=== PATIENT | female | born 1980 | race Caucasian/White ===

== ENCOUNTER 2021-03-08 17:57 | Emergency (ER) | payer OTHER, MEDICAID ==
[~2021-03-08] VITALS: Ht 180.3 cm; Wt 108.9 kg
[~2021-03-08 17:57] MED LIST: ALPR1TAB2 PO
[2021-03-08 18:44] VITALS: BP_SYST 150
[2021-03-08 21:55] LABS: CALCIUM 9.2 mg/dL (8.4-11.0); CREATININE 0.9 mg/dL (0.55-1.30)
[2021-03-08 22:08] LABS: BASOPHILS # (AUTO) 0.1 K/uL (0.0-0.2); BASOPHILS % (AUTO) 1.2 % (0.0-2.0); EOSINOPHILS # (AUTO) 0.3 K/uL (0.0-0.4); EOSINOPHILS % (AUTO) 3.3 % (0.0-4.0); HEMATOCRIT 37.9 % (36-48); LYMPHOCYTES # (AUTO) 2.1 K/uL (1.0-5.5); LYMPHOCYTES % (AUTO) 26.6 % (20.5-51.5); MEAN CORPUSCULAR HEMOGLOBIN 31 pg (27-31); MEAN CORPUSCULAR HGB CONC 35 % (32-36); MEAN CORPUSCULAR VOLUME 89 fL (79.0-98.0); MONOCYTES # (AUTO) 0.4 K/uL (0.0-1.0); MONOCYTES % (AUTO) 5.4 % (1.7-9.3); NEUTROPHILS % (AUTO) 63.5 % (40.0-70.0); PLATELET COUNT (AUTO) 329 K/uL (130-430); RED BLOOD CELL COUNT(AUTO) 4.26 MIL/uL (4.2-6.2); RED CELL DISTRIBUTION WIDTH 13.4 % (9.0-15.0); WHITE BLOOD COUNT (AUTO) 7.8 K/uL (4.8-10.8)
[2021-03-08 22:28] LABS: POTASSIUM 2.7 mmol/L (3.5-5.1)
[2021-03-08] MEDS ORDERED: POTASSIUM CHLORIDE 20 MEQ/PKT PACKET PO ONE (22:30)
[2021-03-08 22:32] LABS: TOTAL BILIRUBIN 0.6 mg/dL (0.0-1.0)
[2021-03-08 22:42] LABS: INR 1.1 (0.8-1.2); PROTHROMBIN TIME 11.3 SECS (9.5-12.5)
[2021-03-09 00:43] VITALS: BP_SYST 150
== END 2021-03-09 00:43 | disposition home or self-care (01) ==
LOC: SED 17:57
DX: R60.0 Localized edema (principal); K21.9 Gastro-esophageal reflux disease without esophagitis; Z79.899 Other long term (current) drug therapy
CPT/HCPCS: 36415; 71045; 80053; 83880; 84484; 85025; 85379; 85610-TC; 85730-TC; 93005; 93970; 99285

== ENCOUNTER 2021-05-18 15:25 | Emergency (ER) | payer OTHER, MEDICAID ==
[~2021-05-18] VITALS: Ht 180.3 cm; Wt 111.1 kg
--- NOTE | 2021-05-18 15:40 | NUR ---
Pt triaged and placed in waiting room.
[2021-05-18 15:45] VITALS: BP_SYST 154
--- NOTE | 2021-05-18 16:01 | NUR ---
Patient to ER bed 2 to gown for evaluation. Side rails up. Report given to IDALIA Howard.
--- NOTE | 2021-05-18 16:07 | NUR ---
DR SILVA IN ROOM FOR EXAM.
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
[2021-05-18] MEDS ORDERED: cefTRIAXone 1 GM VIAL IM ONE (16:15)
--- NOTE | 2021-05-18 16:38 | NUR ---
MEDICTED ORDERED, MONITORING FOR ANY ADVSER SIDE EFFECTS
[2021-05-18] MEDS ORDERED: AMOX-426 PO (16:48)
[2021-05-18 16:53] VITALS: BP_SYST 133
--- NOTE | 2021-05-18 16:55 | NUR ---
Patient given written and verbal discharge instructions and verbalizes understanding. ER MD discussed with patient the results and treatment provided. Patient in stable condition. ID arm band removed. Patient educated on pain management and to follow up with PMD. Pain Scale . Opportunity for questions provided and answered. Medication side effect fact sheet provided.
== END 2021-05-18 16:53 | disposition home or self-care (01) ==
LOC: SED 15:25
DX: L03.115 Cellulitis of right lower limb (principal); Z79.899 Other long term (current) drug therapy; K21.9 Gastro-esophageal reflux disease without esophagitis
CPT/HCPCS: 96372; 99283; J0696

== ENCOUNTER 2021-05-21 11:29 | Emergency (ER) | payer OTHER, MEDICAID ==
[~2021-05-21] VITALS: Ht 180.3 cm; Wt 99.8 kg
[~2021-05-21 11:29] MED LIST changes: +AMOX-426 PO
[2021-05-21 11:39] VITALS: BP_SYST 168
[2021-05-21] MEDS ORDERED: LURA20TA PO ×3 (12:11→12:50)
[2021-05-21] MEDS ORDERED: TRAZ-251 PO ×3 (12:11→12:50)
[2021-05-21] MEDS ORDERED: VIS50 PO ×3 (12:27→12:50)
[2021-05-21 13:15] VITALS: BP_SYST 160
== END 2021-05-21 13:10 | disposition home or self-care (01) ==
LOC: SED 11:29
DX: F41.9 Anxiety disorder, unspecified (principal); F31.9 Bipolar disorder, unspecified; K21.9 Gastro-esophageal reflux disease without esophagitis; Z79.899 Other long term (current) drug therapy; Z76.0 Encounter for issue of repeat prescription
CPT/HCPCS: 99283; J3410

== ENCOUNTER 2021-05-31 18:18 | Inpatient (IN) | payer OTHER, MEDICAID, SELFPAY ==
[~2021-05-31] VITALS: Ht 180.3 cm; Wt 97.5 kg
[~2021-05-31 18:18] MED LIST changes: +LURA20TA PO; +TRAZ-251 PO; +VIS50 PO
--- NOTE | 2021-05-31 18:41 | NUR ---
TRIAGED IN HALLWAY
[2021-05-31 19:47] LABS: BASOPHILS # (AUTO) 0.1 K/uL (0.0-0.2); BASOPHILS % (AUTO) 0.3 % (0.0-2.0); EOSINOPHILS # (AUTO) 0.1 K/uL (0.0-0.4); EOSINOPHILS % (AUTO) 0.3 % (0.0-4.0); HEMATOCRIT 39.6 % (36-48); HEMOGLOBIN 13.2 g/dL (12.0-16.0); LYMPHOCYTES # (AUTO) 1.5 K/uL (1.0-5.5); LYMPHOCYTES % (AUTO) 9.2 % (20.5-51.5); MEAN CORPUSCULAR HEMOGLOBIN 29 pg (27-31); MEAN CORPUSCULAR HGB CONC 33 % (32-36); MEAN CORPUSCULAR VOLUME 88 fL (79.0-98.0); MONOCYTES # (AUTO) 0.5 K/uL (0.0-1.0); MONOCYTES % (AUTO) 2.8 % (1.7-9.3); NEUTROPHILS # (AUTO) 14.4 K/uL (1.8-7.7); NEUTROPHILS % (AUTO) 87.4 % (40.0-70.0); PLATELET COUNT (AUTO) 372 K/uL (130-430); WHITE BLOOD COUNT (AUTO) 16.5 K/uL (4.8-10.8)
[2021-05-31 19:56] LABS: ANION GAP 13 (5-15); CALCIUM 9.1 mg/dL (8.4-11.0); CHLORIDE 102 mmol/L (98-107); CREATININE 0.85 mg/dL (0.55-1.30); GLUCOSE 155 mg/dL (70-99); POTASSIUM 3.2 mmol/L (3.5-5.1); SODIUM SERUM 137 mmol/L (136-145); UREA NITROGEN, BLOOD 9 mg/dL (8-21)
[2021-05-31 19:57] LABS: GFR AFRICAN AMERICAN 94 mL/min (>90)
[2021-05-31 20:01] LABS: C-REACTIVE PROTEIN QUANT < 0.2 mg/dL (0-0.5)
[2021-05-31 20:02] LABS: ALANINE AMINOTRANSFERASE 36 U/L (12-78); ALBUMIN 3.8 g/dL (3.4-4.8); AMYLASE 77 U/L (0-100); ASPARTATE AMINOTRANSFERASE 34 U/L (10-37); LACTATE DEHYDROGENASE 160 U/L (81-234); LIPASE 147 U/L (73-393); TOTAL BILIRUBIN 0.5 mg/dL (0.0-1.0)
--- NOTE | 2021-05-31 20:10 | NUR ---
PT BIB MOTHER FOR NAUSEA, VOMITING AND DIARHEA SINCE 1730 TODAY. PT ATE IN N OUT AT AROUND 1700 AND STARTED HAVING SEVERE DIARHEA AND VOMITING. PT STATES OVER 5 VOMITING EPISODES AND DIARHEA FOR 6 EPISODES. A&OX4, -CP, -SOB.
[2021-05-31] MEDS ORDERED: ONDANSETRON 4 MG ODT TAB PO ONE (20:30)
--- NOTE | 2021-05-31 20:30 | NUR ---
# 20 gauge angiocath placed to LAC. Use of asceptic technique. Opsite placed over site. Blood return noted. Blood for lab drawn from site. Flushed with 10 cc of normal saline. No evidence of infiltration noted. Patient tolerated well.
[2021-05-31] MEDS ORDERED: ONDANSETRON HCL 4 MG/2 ML VIAL ONE (20:56)
[2021-05-31] MEDS ORDERED: LORazepam 2 MG/ML VIAL ONE (20:56)
[2021-05-31] MEDS ORDERED: LORazepam 2 MG/ML VIAL IVP ONE (21:00)
[2021-05-31] MEDS ORDERED: ONDANSETRON HCL 4 MG/2 ML VIAL IVP ONE ×2 (21:00→23:45)
[2021-05-31] MEDS ORDERED: NACL 0.9% 1,000 ML IV ONE (21:00)
[2021-05-31] MEDS ORDERED: ATROPINE SULFATE 1 MG/10 ML SYRINGE IVP ONE ×2 (23:30→23:37)
[2021-05-31] MEDS ORDERED: CEFEPIME 2 GM in D5W 100 ML IV ONE (23:45)
[2021-05-31] MEDS ORDERED: metroNIDAZOLE 500 mg/NS 100 ML IV ONE (23:45)
[2021-05-31] MEDS ORDERED: VANCOMYCIN HCL Non-Formulary 125 MG CAPSULE PO SCH (23:45)
[2021-05-31] MEDS ORDERED: CEFEPIME 1 GM/VIAL (MAXIPIME) ONE (23:49)
--- NOTE | 2021-06-01 00:08 | NUR ---
pt being transferred by [facility] ambulance to [place] for a ct scan with contrast
--- NOTE | 2021-06-01 01:20 | NUR ---
PT BACK TO ROOM, CT NOT DONE. WILL BE ORDERED BY DR KUO HERE IN OUR ER. PTs VSS
[2021-06-01] MEDS ORDERED: DIPHENHYDRAMINE INJ 50 MG/ML VIAL IVP ONE (02:45)
[2021-06-01] MEDS ORDERED: METOCLOPRAMIDE HCL 10 MG/2 ML VIAL IVP ONE (02:45)
--- NOTE | 2021-06-01 02:49 | NUR ---
Patient transported to radiology via GURNEY, accompanied by OKRY WILSON
[2021-06-01 04:41] LABS: BILIRUBIN,URINE NEGATIVE (NEGATIVE); BLOOD, URINE NEGATIVE (NEGATIVE); CLARITY/URINE SL CLOUDY (CLEAR); COLOR,URINE YELLOW (YELLOW); GLUCOSE,URINE NEGATIVE (NEGATIVE); KETONES,URINE NEGATIVE (NEGATIVE); LEUKOCYTE ESTERASE ,URINE NEGATIVE (NEGATIVE); NITRITE, URINE NEGATIVE (NEGATIVE); PROTEIN URINE NEGATIVE (NEGATIVE); UROBILINOGEN,URINE 0.2 (0.2-1.0)
[2021-06-01] MEDS ORDERED: PROMETHAZINE INJ.Non-Formulary 25 MG/ML AMP IM ONE (04:45)
[2021-06-01 04:55] LABS: BACTERIA,URINE MANY /HPF (None Seen); RBC,URINE 0-3 /HPF (0-3)
[2021-06-01 04:56] LABS: MUCUS,URINE None Seen /LPF (None Seen); URINE AMORPHOUS PHOSPHATES 2+ /HPF (None Seen)
[2021-06-01 04:57] LABS: BARBITURATE, URINE NEGATIVE (NEG <=200); URINE AMPHETAMINE NEGATIVE (NEG <=500)
[2021-06-01 04:58] LABS: BENZODIAZEPINE, URINE POSITIVE (NEG <=150); CANNABINOID, URINE POSITIVE (NEG <=50); COCAINE, URINE NEGATIVE (NEG <=150); METHAMPHETAMINES SCREEN,URINE NEGATIVE (NEG <=500); OPIATE, URINE NEGATIVE (NEG <=100); PHENCYCLIDINE SCREEN,URINE NEGATIVE (NEG <=25); UR TRICYCLIC ANTIDEPRESSANTS NEGATIVE (NEG <=300); URINE METHADONE NEGATIVE (NEG <=200); URINE OXYCODONE SCREEN NEGATIVE (NEG <=100); URINE PROPOXYPHENE SCREEN NEGATIVE (NEG <=300)
[2021-06-01] MEDS ORDERED: ONDANSETRON HCL 4 MG/2 ML VIAL IVP ONE (05:15)
[2021-06-01] MEDS ORDERED: VANCOMYCIN HCL ORAL SOLUTION 250 MG/5 ML, 80 ML PO SCH (05:15)
[2021-06-01] MEDS: KCL 20 mEq in D5/0.45NS 1000mL 1,000 ML IV SCH ×2 (05:22→11:12)
--- NOTE | 2021-06-01 07:31 | NUR ---
REPORT RECEIVED, PT WITH EYES CLOSED, EASILY AROUSBALE TO VOICE. PT DENIES ANY DIZZINES/SOB OR CP. SKIN W/D/I, DENIES ANY PAIN, BUT REPORTS MILD NAUSEA. REPORTTS LAST TIME SHE VOMITTED WAS LAST NIGHT. RESP EVEN AND UNLABORED, ON RA @95%. REPOSITIOND IN BED, IV FLUIDS INFUSING VIA PUMP ORDERED. SAFTEY PRECAUTIONS IN PLACE, WILL CONT TO MONITOR.
--- NOTE | 2021-06-01 09:57 | NUR ---
REPORT GIVEN TO UTE FRIEDMAN, UPDATED ON STATUS, LABS AND VITALS. PT STABLE FR TRANSFER. VSS. PT GOT UP TO BATHROOM WITH STEADY GAIT. DENIES ANY DIARRHEA.VOMITIING.
--- NOTE | 2021-06-01 10:25 | NUR ---
Patient will be admitted to care of D MARCEL. Admitted to unit. Will go to room . Belongings list completed. Complete and up to date summary report printed. SBAR report to be given at bedside with opportunity for questions.
--- NOTE | 2021-06-01 10:32 | NUR ---
CONSULTATION PAGED/CALLED Reason for Consultation: [] ACUTE COLITIS Person Who was Notified: [] TIESHA Consulting Physician: [] DR DAMON Group Segment Consultant Specialty: [] ID Ordering Physician: [] DR RODNEY
[2021-06-01 10:40] VITALS: BP_SYST 151
[2021-06-01 10:59] VITALS: BP_SYST 151
[2021-06-01] MEDS ORDERED: NON-FORMULARY MEDICATION (Lurasidone Hcl (Latuda) 1 TAB) PO SCH (14:15)
[2021-06-01] MEDS: cefTRIAXone 1 GM in D5W 50 ML IV SCH (15:56)
[2021-06-01] MEDS: metroNIDAZOLE 250 mg/NS 50 ML IV SCH ×2 (15:56→20:57)
--- NOTE | 2021-06-01 16:42 | NUR ---
APPEARED ALERT, ORIENTED, AND APPROPRIATE. ASKING FOR FOOD, OFFERED LIQUID DIET TO BEGIN WITH, DID NOT EAT, JUST DRANK SOME JUICE. IVF STARTS RIGHT AWAY ON ARRIVAL, CLAIMED SHE HAS HAD DIARRHEA X 3 DAYS, NEEDS STOOL SPECIMEN, SO FAR SHE DOES NOT HAVE A BM YET, PER ID, ALL ABX ( ROCEPHIN, AND FLAGYL IVPB INITIATED). PATIENT DID REQUEST TRAZODONE FOR TONITE, WHICH HAS BEEN ORDERED, PATIENT MADE AWARE. ON BED REST
--- NOTE | 2021-06-01 17:40 | NUR ---
AMARI NOTIFIED [facility], WHICH IS NOT FORMULARY IN THIS HOSPITAL. CALLED PATIENT'S MOTHER TO BRING IT TO THE HOSPITAL. PATIENT REALLY NEEDS IT
[2021-06-01 18:02] VITALS: BP_SYST 148
[2021-06-01 20:10] VITALS: BP_SYST 158
--- NOTE | 2021-06-01 20:10 | NUR ---
Opening notes Pt AAOx 4, VSS, afebrile. No s/s distress noted. Pt has N/V, yellow emesis noted. Pt on clear liquid diet. Will medicate with Zofran as needed. Pt denies diarrhea. IVF infusing at ordered rate L. AC 20G clear and patent. Call light within reach. To monitor.
[2021-06-01] MEDS: ONDANSETRON HCL 4 MG/2 ML VIAL IVP PRN (20:42)
[2021-06-01] MEDS: ENOXAPARIN SODIUM 40 MG/0.4 ML SYRINGE SUBCUT SCH (20:45)
[2021-06-01] MEDS: traZODone HCL 50 MG TABLET (DESYREL) PO PRN (20:55)
--- NOTE | 2021-06-01 22:05 | NUR ---
Pt speaking with mother on phone. No distress noted.
[2021-06-01] MEDS: VANCOMYCIN HCL ORAL SOLUTION 250 MG/5 ML, 80 ML PO SCH (23:15)
[2021-06-02 00:09] VITALS: BP_SYST 148
[2021-06-02] MEDS: ONDANSETRON HCL 4 MG/2 ML VIAL IVP PRN ×4 (01:43→17:58)
--- NOTE | 2021-06-02 01:43 | NUR ---
Zofran Pt awake, c/o N/V, medicated with Zofran 4mg IVP as needed per pt request. Educated pt to keep L. arm straight for IV fluid infusion, pt demonstrated understanding. To monitor
[2021-06-02] MEDS: KCL 20 mEq in D5/0.45NS 1000mL 1,000 ML IV SCH ×4 (03:00→23:48)
[2021-06-02] MEDS ORDERED: KCL 20 mEq in D5/0.45NS 1000mL 1,000 ML IV ONE (05:52)
[2021-06-02] MEDS: metroNIDAZOLE 250 mg/NS 50 ML IV SCH ×3 (06:07→21:12)
[2021-06-02] MEDS: VANCOMYCIN HCL ORAL SOLUTION 250 MG/5 ML, 80 ML PO SCH ×5 (06:09→23:15)
[2021-06-02 06:34] LABS: BASOPHILS # (AUTO) 0.1 K/uL (0.0-0.2); BASOPHILS % (AUTO) 0.3 % (0.0-2.0); EOSINOPHILS % (AUTO) 0.1 % (0.0-4.0); HEMATOCRIT 36.9 % (36-48); HEMOGLOBIN 12.5 g/dL (12.0-16.0); LYMPHOCYTES # (AUTO) 1.6 K/uL (1.0-5.5); LYMPHOCYTES % (AUTO) 10.3 % (20.5-51.5); MEAN CORPUSCULAR HEMOGLOBIN 30 pg (27-31); MEAN CORPUSCULAR HGB CONC 34 % (32-36); MEAN CORPUSCULAR VOLUME 87 fL (79.0-98.0); MONOCYTES # (AUTO) 0.6 K/uL (0.0-1.0); MONOCYTES % (AUTO) 3.9 % (1.7-9.3); NEUTROPHILS # (AUTO) 13.7 K/uL (1.8-7.7); NEUTROPHILS % (AUTO) 85.4 % (40.0-70.0); PLATELET COUNT (AUTO) 324 K/uL (130-430); RED BLOOD CELL COUNT(AUTO) 4.23 MIL/uL (4.2-6.2); RED CELL DISTRIBUTION WIDTH 14.1 % (9.0-15.0)
--- NOTE | 2021-06-02 06:40 | NUR ---
Closing notes Pt AAOx3, no s/s distress noted. Pt medicated with nausea med Zofran 4mg IVP. IVF/antibiotic infusing at ordered rate L. AC no s/s infiltration. Call light within reach. Bed low, locked, siderails up x2. Safety maintained. To endorse to AM nurse.
[2021-06-02 06:56] LABS: CALCIUM 8.4 mg/dL (8.4-11.0); CREATININE 0.55 mg/dL (0.55-1.30); POTASSIUM 3.1 mmol/L (3.5-5.1)
[2021-06-02 08:17] VITALS: BP_SYST 168
--- NOTE | 2021-06-02 08:17 | NUR ---
INITIAL ROUNDS Received pt AAOx4, no s/s resp distress, no c/o pain or discomfort. IVF infusing well to LAC at ordered rate with no s/s infiltration to site. Plan of care for the day reviewed with pt-she verbalized her understanding. Pain management, disease process, skin and safety discussed-teach back done. Call light within reach.
[2021-06-02] MEDS: amLODIPine BESYLATE 10 MG TABLET PO SCH (10:00)
[2021-06-02] MEDS: LURASIDONE (LATUDA) 20 MG TABLET PO SCH (10:00)
--- NOTE | 2021-06-02 11:10 | NUR ---
ANXIOUS Pt c/o feeling very anxious-pt given Vistaril as ordered. Light turned down low and curtain pulled to promote rest. Call light within reach.
[2021-06-02 11:23] VITALS: BP_SYST 173
[2021-06-02] MEDS: cefTRIAXone 1 GM in D5W 50 ML IV SCH (12:02)
[2021-06-02 15:45] VITALS: BP_SYST 134
--- NOTE | 2021-06-02 18:21 | NUR ---
CLOSING NOTE Pt resting quietly in bed with no s/s resp distress, no c/o pain, no further c/o nausea-pt given Zofran at 1758. Pt still refused the Vanco liquid, pt stated " I don't want to start throwing up again and I finely feel a little better". IVF infusing well to LAC at ordered rate with no s/s infiltration to site. Pt encouraged to try to eat her dinner-pt stated "I'm going to try the broth". Call light within reach.
[2021-06-02 20:30] VITALS: BP_SYST 109
--- NOTE | 2021-06-02 21:00 | NUR ---
Opening notes Pt alert, awake, calm, no s/s distress noted. Pt denies N/V at this time. IVF infusing at ordered rate L. AC 20 clear and patent. Pt maintained on clear liquid diet. Awaiting stool sample. Call light within reach. To monitor.
[2021-06-02] MEDS: ENOXAPARIN SODIUM 40 MG/0.4 ML SYRINGE SUBCUT SCH (21:13)
[2021-06-02] MEDS ORDERED: D5 IV ONE (23:17)
[2021-06-02] MEDS ORDERED: [UNRECOGNIZED DRUG - OTHER] IV ONE (23:17)
[2021-06-02] MEDS ORDERED: KCL IV ONE (23:17)
--- NOTE | 2021-06-02 23:50 | NUR ---
Stool sample collected and sent to lab.
[2021-06-03 01:40] VITALS: BP_SYST 105
[2021-06-03] MEDS: KCL 20 mEq in D5/0.45NS 1000mL 1,000 ML IV SCH (05:00)
[2021-06-03] MEDS: VANCOMYCIN HCL ORAL SOLUTION 250 MG/5 ML, 80 ML PO SCH ×4 (05:15→23:15)
[2021-06-03] MEDS: ACETAMINOPHEN 325 MG TABLET PO PRN ×2 (05:25→15:17)
[2021-06-03] MEDS: metroNIDAZOLE 250 mg/NS 50 ML IV SCH ×3 (05:25→20:50)
--- NOTE | 2021-06-03 05:25 | NUR ---
Closing notes/Headache Pt awake, c/o headache. Medicated with Tylenol 2 tabs PO as needed. Pt denies any nausea/vomitting. IVF/abx infusing L. AC 20G clear and patent. Call light within reach. To endorse to AM nurse.
--- NOTE | 2021-06-03 07:55 | NUR ---
Opening Notes Patient is awake, alert and oriented x4. No resp distress noted. Breathing is even and unlabored. Pt denies any pain at this time. IV site on left AC 20 gauge intact at this time. KCl 20 mEq + D5 1/2 NS @ 125 cc/hr, infusing well. Pt is ambulatory steady gait. Pt denies any N/V at this time. Pt reports continued diarrhea but less frequent episodes. Pt reports that Vanco oral solution makes her nauseated. Pt also report intermittent bloody drainage from her belly button, will follow up with MD Cook. All needs met at this time. Safety and fall precautions in place. Bed in lowest position, locked. Will continue to monitor.
[2021-06-03 08:00] VITALS: BP_SYST 114
[2021-06-03] MEDS: amLODIPine BESYLATE 10 MG TABLET PO SCH (08:57)
[2021-06-03] MEDS: LURASIDONE (LATUDA) 20 MG TABLET PO SCH (08:58)
--- NOTE | 2021-06-03 10:00 | NUR ---
Notes Patient is relaxing in bed and talking on her phone. No resp distress noted. Breathing is even and unlabored. Denies any pain. Will continue to monitor.
[2021-06-03 11:04] LABS: BASOPHILS # (AUTO) 0.1 K/uL (0.0-0.2); BASOPHILS % (AUTO) 1.2 % (0.0-2.0); EOSINOPHILS # (AUTO) 0.1 K/uL (0.0-0.4); EOSINOPHILS % (AUTO) 1.5 % (0.0-4.0); HEMATOCRIT 42.2 % (36-48); HEMOGLOBIN 14.2 g/dL (12.0-16.0); LYMPHOCYTES # (AUTO) 1.9 K/uL (1.0-5.5); LYMPHOCYTES % (AUTO) 25.6 % (20.5-51.5); MEAN CORPUSCULAR HEMOGLOBIN 30 pg (27-31); MEAN CORPUSCULAR HGB CONC 34 % (32-36); MEAN CORPUSCULAR VOLUME 88 fL (79.0-98.0); MONOCYTES # (AUTO) 0.5 K/uL (0.0-1.0); MONOCYTES % (AUTO) 7.1 % (1.7-9.3); NEUTROPHILS # (AUTO) 4.9 K/uL (1.8-7.7); NEUTROPHILS % (AUTO) 64.6 % (40.0-70.0); PLATELET COUNT (AUTO) 295 K/uL (130-430)
[2021-06-03 11:16] LABS: CALCIUM 8.8 mg/dL (8.4-11.0); CREATININE 0.89 mg/dL (0.55-1.30); POTASSIUM 3.6 mmol/L (3.5-5.1)
[2021-06-03 11:45] VITALS: BP_SYST 96
[2021-06-03] MEDS: cefTRIAXone 1 GM in D5W 50 ML IV SCH (12:25)
--- NOTE | 2021-06-03 12:25 | NUR ---
Notes/Anxiety Patient is feeling anxious at this time. Administered Vistaril 20 mg PO at 1225, tolerated well. No resp distress noted. Breathing is even and unlabored. Denies any pain. No reported nausea/diarrhea at this time. Will continue to monitor.
[2021-06-03 13:07] LABS: WHITE BLOOD COUNT (AUTO) 7.6 K/uL (4.8-10.8)
--- NOTE | 2021-06-03 14:00 | NUR ---
Notes Patient is sleeping at this time. No resp distress noted. Breathing is even and unlabored. Denies any pain. Will continue to monitor.
--- NOTE | 2021-06-03 15:17 | NUR ---
Tylenol 650 mg for menstrual cramps Patient is c/o 01/13 abdominal cramp pain, requesting pain meds. Administered Tylenol 650 mg PO, tolerated well. Will follow up. Addendum: 06/03/21 at 1904 by Lisbet Blancas RN 1615: per pt, Tylenol helped relieve menstrual cramps.
[2021-06-03 15:40] VITALS: BP_SYST 124
--- NOTE | 2021-06-03 16:00 | NUR ---
Notes Patient is ambulating in her room, steady gait. No resp distress noted. breathing is even and unlabored. Pt denies any pain. Will continue to monitor.
--- NOTE | 2021-06-03 16:50 | NUR ---
DIET SPOKE WITH DR RODNEY PATIENT HAS NO VOMITING OR DIARRHEA AND IS REQUESTING TO INCREASE DIET. NEW ORDERS RECEIVED
--- NOTE | 2021-06-03 18:58 | NUR ---
Closing Notes Patient is awake, alert and oriented x4. Pt is feeling anxious at this time. Nurse notified patient that her anxiety medication is not due for another 2 hours. Per patient, "Its okay, I can wait." Will endorse to next nurse to follow up. No resp distress noted. Breathing is even and unlabored. Pt denies any pain at this time. IV site on left AC 20 gauge intact, Kcl 20 mEq + D5 1/2 NS @ 125 cc/hr, infusing well at this time. Pt reports no diarrhea/nausea episodes today during shift. Pt diet upgraded to full liquid at this time. All needs met at this time. Safety and fall precautions in place. Bed in lowest position, locked. Will continue to monitor.
[2021-06-03] MEDS: traZODone HCL 50 MG TABLET (DESYREL) PO PRN (20:50)
[2021-06-03] MEDS: ENOXAPARIN SODIUM 40 MG/0.4 ML SYRINGE SUBCUT SCH (20:52)
[2021-06-03 21:00] VITALS: BP_SYST 137
--- NOTE | 2021-06-03 21:45 | NUR ---
Patient awake alert Family is @ the bedside patient Requesting the medication DESYREL 100 MG po for sleep aide .
[2021-06-04 00:37] VITALS: BP_SYST 129
[2021-06-04] MEDS: VANCOMYCIN HCL ORAL SOLUTION 250 MG/5 ML, 80 ML PO SCH ×4 (05:15→21:27)
[2021-06-04] MEDS: KCL 20 mEq in D5/0.45NS 1000mL 1,000 ML IV SCH ×2 (05:43→15:08)
--- NOTE | 2021-06-04 05:48 | NUR ---
VISTARIL 50 MG po administer for itching & helpful , patient Resting .
[2021-06-04] MEDS: metroNIDAZOLE 250 mg/NS 50 ML IV SCH ×3 (06:43→21:26)
--- NOTE | 2021-06-04 07:55 | NUR ---
Initial Note Patient awake, alert, and oriented x 4. Reports 3/10 pain due to menstrual cramping. Requesting Tylenol and Vistaril with A.M. medications. Will review and administer medications as ordered. Patient ambulatory without assist. Call light and bedside table within reach, bed locked in lowest position. Encouraged to call.
[2021-06-04 08:00] VITALS: BP_SYST 113
[2021-06-04] MEDS: amLODIPine BESYLATE 10 MG TABLET PO SCH (09:10)
[2021-06-04] MEDS: LURASIDONE (LATUDA) 20 MG TABLET PO SCH (09:10)
[2021-06-04] MEDS: ACETAMINOPHEN 325 MG TABLET PO PRN (09:13)
[2021-06-04 12:00] VITALS: BP_SYST 104
--- NOTE | 2021-06-04 12:00 | NUR ---
Notes Patient resting in bed watching TV. No pain or distress. Patient states no episodes of diarrhea since this morning. Call light in reach and bed in lowest position. Encouraged to call.
[2021-06-04] MEDS: cefTRIAXone 1 GM in D5W 50 ML IV SCH (12:10)
[2021-06-04 16:00] VITALS: BP_SYST 126
--- NOTE | 2021-06-04 16:00 | NUR ---
Notes Patient resting in bed, mom at bedside. No pain or distress observed. Needs addressed. Encouraged to call as needed.
--- NOTE | 2021-06-04 18:54 | NUR ---
Closing Note Patient resting in bed, mom at bedside. No pain or distress. Anxiety is managed with Vistaril per MD order. Call light and bedside table in reach, bed in lowest position. Will continue to monitor and endorse to night nurse.
[2021-06-04 21:00] VITALS: BP_SYST 132
--- NOTE | 2021-06-04 21:15 | NUR ---
DR RONEL KELLEY here to see patient & @ the bedside / .
[2021-06-04] MEDS: traZODone HCL 50 MG TABLET (DESYREL) PO PRN (21:26)
[2021-06-04] MEDS: ENOXAPARIN SODIUM 40 MG/0.4 ML SYRINGE SUBCUT SCH (21:28)
--- NOTE | 2021-06-05 | NUR ---
Desyrel 100 MG po administer for sleep aide per Patient Request & helpful .
[2021-06-05 01:00] VITALS: BP_SYST 114
[2021-06-05] MEDS: KCL 20 mEq in D5/0.45NS 1000mL 1,000 ML IV SCH ×2 (02:42→10:07)
--- NOTE | 2021-06-05 02:43 | NUR ---
Hourly Rounding assist patient out of bed to Rest Room ambulates with ASSIST fall measures implemented no SOB noted activity tolerated / .
[2021-06-05] MEDS: VANCOMYCIN HCL ORAL SOLUTION 250 MG/5 ML, 80 ML PO SCH ×2 (05:15→11:15)
[2021-06-05] MEDS: metroNIDAZOLE 250 mg/NS 50 ML IV SCH ×2 (06:10→13:28)
--- NOTE | 2021-06-05 07:45 | NUR ---
OPENING NOTE Received shift report from slot shift manager RN. Patient AxOx4 currently resting in bed and respirations remain even and non-labored on room air. IV is patent and infusing fluids as ordered. Bed locked in lowest position and call light is within reach. Will continue to monitor.
[2021-06-05 08:53] VITALS: BP_SYST 141
[2021-06-05] MEDS: amLODIPine BESYLATE 10 MG TABLET PO SCH (10:06)
[2021-06-05] MEDS: LURASIDONE (LATUDA) 20 MG TABLET PO SCH (10:07)
[2021-06-05] MEDS: cefTRIAXone 1 GM in D5W 50 ML IV SCH (11:58)
--- NOTE | 2021-06-05 12:00 | NUR ---
ROUNDING Patient currently eating lunch in bed. No complaints of pain and/or distress. All needs met. Will continue to monitor.
[2021-06-05 12:09] VITALS: BP_SYST 135
[2021-06-05 15:49] VITALS: BP_SYST 131
[2021-06-05 16:00] VITALS: BP_SYST 131
--- NOTE | 2021-06-05 16:40 | NUR ---
D/C Patient Patient given medication reconciliation form and D/C instructions. Exit Care provided. Patient verbalized understanding. MD discussed with patient the results and treatment provided. Ambulatory with steady gait for discharge to home. Patient in stable condition, ID band removed. IV catheter removed, intact and dressing applied, no active bleeding. Written Rx given. Patient educated on pain management. All belongings sent with patient.
== END 2021-06-05 16:40 | disposition home or self-care (01) | DRG 392 ==
LOC: SED 18:18 → SMU 06-01 04:51
PROVIDERS: ADMIT Family Medicine; ATTEND Family Medicine
DX: K52.9 Noninfective gastroenteritis and colitis, unspecified (principal); N39.0 Urinary tract infection, site not specified; E87.2 Acidosis; L03.90 Cellulitis, unspecified; F41.9 Anxiety disorder, unspecified; I10 Essential (primary) hypertension; Z20.822 Contact with and (suspected) exposure to COVID-19; F31.9 Bipolar disorder, unspecified; K21.9 Gastro-esophageal reflux disease without esophagitis; Z91.19 Patient's noncompliance with other medical treatment and regimen; Z79.899 Other long term (current) drug therapy; Z59.00 Homelessness unspecified
CPT/HCPCS: 36415; 76376; 80048; 80053; 80307; 81000; 82150; 83605; 83615; 83690; 85025; 86140; 87040-TC; 87045-TC; 87046; 87086; 89055; 93005; 96361; 96365; 96375; 99285; G0482; J0461; J0692; J0696; J1200; J1650; J2060; J2405; J2550; J2765; J3370; J3490; J7060; Q9967